=== PATIENT | male | born 1960 | race African-American/Black ===

== ENCOUNTER 2021-07-09 15:52 | Emergency (ER) | payer MEDICAID ==
[~2021-07-09] VITALS: Ht 180.3 cm; Wt 81.2 kg
[2021-07-09] MEDS ORDERED: TRIH2TAB4 PO (17:11)
[2021-07-09] MEDS ORDERED: PHEN100C4 PO (17:11)
[2021-07-09 17:35] LABS: *AMPHETAMINE, URINE NEGATIVE (NEGATIVE); *CANNABINOID, URINE NEGATIVE (NEGATIVE); *COCCAINE, URINE NEGATIVE (NEGATIVE); *OPIATE, URINE NEGATIVE (NEGATIVE); *PHENCYCLIDINE SCREEN,URINE NEGATIVE (NEGATIVE)
--- NOTE | 2021-07-09 17:58 | NUR ---
spoke with ANA Garcia (PET) via telephone.
--- NOTE | 2021-07-09 18:30 | NUR ---
Pt to wait in ER waiting room for social welfare clerk. ER is saturated at this time.
--- NOTE | 2021-07-10 | NUR ---
Patient sleeping on chair in waiting room with no distress noted.
--- NOTE | 2021-07-10 08:43 | NUR ---
PT AWAKE AND ALERT. TOLERATED BREAKFAST WELL; STILL WAITING FOR [employer] CONTRACT INTERVENTION.
--- NOTE | 2021-07-10 08:50 | NUR ---
Helen Sunn in to verónica ken
--- NOTE | 2021-07-10 09:00 | NUR ---
Alexis Le pt may be d/c from the ER.
--- NOTE | 2021-07-10 09:15 | NUR ---
Patient given written and verbal discharge instructions. Patient verbalizes understanding of instructions. Patient is ambulatory with steady gait. Patient given list of available shelters in surrounding area. Pt was given all his belongings that were brought by EMS (witnessed by security).
== END 2021-07-10 09:39 | disposition home or self-care (01) ==
LOC: ER 15:55
DX: R45.851 Suicidal ideations (principal); F32.9 Major depressive disorder, single episode, unspecified; F17.210 Nicotine dependence, cigarettes, uncomplicated; Z59.00 Homelessness unspecified; Z79.899 Other long term (current) drug therapy